=== PATIENT | female | born 1975 | race Two or more races ===

== ENCOUNTER 2024-07-07 09:40 | Day surgery (SDC) | payer MEDICAID, SELFPAY ==
[2024-07-06 12:14] VITALS: BMI 36.6
[2024-07-07] VITALS (10 sets, daily range): BP systolic 96–141; BP diastolic 56–89; PULSE 82–94; RESP 13–19; TEMP 36.2–36.6; O2SAT 92–99; BMI 39.4
--- NOTE | 2024-07-07 12:50 | SUR.PREOP ---
PATIENT INFORMED THIS NURSE THAT SHE FEELS FATIGUED AND ASKS IF HER BLOOD SUGAR CAN BE RECHECKED. REPEAT BLOOD GLUCOSE IS 70. INFORMED, D5 FLUIDS ORDERED.
[2024-07-07] MEDS: DEXTROSE 5%-WATER 500 ML 20 ML IV (12:55)
[2024-07-07] MEDS: fentaNYL CIT INJ 50 mCg/ML AMP 2ML (ASD USE ONLY) IV (13:24)
[2024-07-07] MEDS: MIDAZOLAM INJ 1 MG/ML VIAL 2 ML (ASD USE ONLY) 2 MG IV (13:24)
== END 2024-07-07 14:26 | disposition home or self-care (01) ==
PROVIDERS: Referring Provider Surgery; Visit Provider Surgery
PROC: 0DBE8ZX Excision of Large Intestine, Via Natural or Artificial Opening Endoscopic, Diagnostic (ICD-10-PCS; CPT 45380; principal; 2024-07-07 13:00)
DX: Z12.11 Encounter for screening for malignant neoplasm of colon (principal); E11.9 Type 2 diabetes mellitus without complications; I10 Essential (primary) hypertension
CPT/HCPCS: 45378; 81025; J2250; J3010; J7060